=== PATIENT | male | born 1965 | race Caucasian/White ===

== ENCOUNTER 2016-10-15 21:05 | Emergency (ER) | payer OTHER ==
[~2016-10-15] VITALS: Ht 180.3 cm; Wt 84.0 kg
[2016-10-15] MEDS ORDERED: SODIUM CHLORIDE 0.9% 1,000ML IVBOLUS ONE (22:00)
[2016-10-15 22:27] LABS: BLOOD UREA NITROGEN 19 mg/dL (7-18)
[2016-10-15 22:33] LABS: IS PT STATUS REG ER OR PRE ER? YES
[2016-10-15 23:30] VITALS: BP 102/62
== END 2016-10-15 23:36 | disposition home or self-care (01) ==
LOC: ED 23:30
DX: R42 Dizziness and giddiness (principal); I10 Essential (primary) hypertension; E11.9 Type 2 diabetes mellitus without complications
CPT/HCPCS: 36415; 71010; 80048; 82040; 84484; 85025; 93005; 99285; J7030

== ENCOUNTER 2017-08-26 22:35 | Emergency (ER) | payer OTHER ==
[~2017-08-26] VITALS: Ht 177.8 cm; Wt 95.2 kg
[2017-08-26] MEDS ORDERED: DIPH,PERTUSS(ACELL),TET VAC/PF 0.5 ML IM-VACC ONE ×2 (22:58→23:00)
[2017-08-26] MEDS ORDERED: LIDOCAINE-MPF 1%, 2ML ONE (22:58)
[2017-08-26] MEDS ORDERED: LIDOCAINE-MPF 1%, 2ML INFIL ONE (23:00)
[2017-08-26] MEDS ORDERED: BACITRACIN ZINC OINT 500U/GM, 0.9 GM ONE (23:13)
[2017-08-26 23:54] VITALS: BP 146/82
== END 2017-08-26 23:58 | disposition home or self-care (01) ==
LOC: ED 23:40
DX: S61.217A Laceration without foreign body of left little finger without damage to nail, initial encounter (principal); I10 Essential (primary) hypertension; E11.9 Type 2 diabetes mellitus without complications; X58.XXXA Exposure to other specified factors, initial encounter; Y93.89 Activity, other specified; Y92.89 Other specified places as the place of occurrence of the external cause; Y99.8 Other external cause status
CPT/HCPCS: 12001; 73140; 90715; 99284; J3490; 90471; 99283

== ENCOUNTER 2018-11-01 09:46 | Outpatient (CLI) | payer OTHER | END 2018-11-01 23:59 | disposition home or self-care (01) | LOC: CFH 09:46 | PROVIDERS: ATTEND Family Medicine | DX: M19.041 Primary osteoarthritis, right hand (principal); M18.11 Unilateral primary osteoarthritis of first carpometacarpal joint, right hand; M19.071 Primary osteoarthritis, right ankle and foot ==

== ENCOUNTER 2019-01-29 09:16 | Day surgery (SDC) | payer OTHER ==
[~2019-01-29] VITALS: Ht 177.8 cm; Wt 101.8 kg
[2019-01-29] MEDS ORDERED: SODIUM CHLORIDE 0.9% 1,000 ML IV SCH (10:22)
[2019-01-29 10:23] VITALS: BP 150/91
[2019-01-29] MEDS ORDERED: PLEASE ENTER HEIGHT AND WEIGHT MC SCH (10:30)
[2019-01-29] MEDS ORDERED: LIDOCAINE 1%, 10ML ONE (11:20)
[2019-01-29] MEDS ORDERED: FENTANYL PF 100 MCG/2ML ONE ×2 (11:32→11:33)
[2019-01-29] MEDS ORDERED: MIDAZOLAM 1 MG/ML, 5ML ONE ×2 (11:33)
[2019-01-29] MEDS ORDERED: NALOXONE 1 MG/ML, 2ML ONE (11:33)
[2019-01-29] MEDS ORDERED: FLUMAZENIL 0.1 MG/1 ML, 5ML ONE (11:33)
[2019-01-29] MEDS ORDERED: NITROGLYCERIN 5 MG/ML, 10ML ONE (11:39)
[2019-01-29] MEDS ORDERED: VISIPAQUE 270 MG/ML, 50ML BOTTLE ONE (12:00)
== END 2019-01-29 16:30 | disposition home or self-care (01) ==
LOC: OUT 09:16 → EDSTATUS 11:00 → OUT 16:30
PROVIDERS: ATTEND Orthopaedic Surgery
DX: M06.842 Other specified rheumatoid arthritis, left hand (principal); I10 Essential (primary) hypertension
CPT/HCPCS: 36217; 75710; 99156; 99157; C1751; C1760; C1769; C1894; J2250; J3010; J7030; Q9966; 36215; 36221; G0269; J2310